=== PATIENT | male | born 1930 | race Caucasian/White ===

== ENCOUNTER 2017-05-11 08:58 | Emergency (ER) | payer MEDICARE, BC ==
[2017-05-11 11:20] LABS: ALT (SGPT) 17 U/L (8-55); AST (SGOT) 20 U/L (5-34); Alkaline Phosphatase 55 U/L (40-150); Anion Gap 13 mmol/L (10-20); BUN (Urea Nitrogen) 16 mg/dL (8.4-25.7); Bilirubin, Total 0.8 mg/dL (0.2-1.2); CK (CPK) 67 U/L (30-200); Calc. Creatinine Clearance 0 mL/min (70-130); Calcium 9.8 mg/dL (7.8-10.44); Carbon Dioxide 25 mmol/L (23-31); Chloride 102 mmol/L (98-107); Estimated GFR-MDRD 74; Globulin 3.5 g/dL (2.4-3.5); Lipase 14 U/L (8-78); Protein, Total 7.9 g/dL (5.8-8.1)
[2017-05-11 11:21] LABS: Hematocrit 49.3 % (42.0-52.0); Red Blood Cell (RBC) Count 4.78 mill/uL (4.70-6.10); White Blood Cell (WBC) Count 18.1 thou/uL (4.8-10.8)
[2017-05-11 11:24] LABS: Troponin I Less than 0.010 ng/mL (< 0.028)
[2017-05-11 11:41] LABS: Band 8 % (5-11); Mean Platelet Volume 6.6 fL (7.4-10.4); Neutrophil 86 % (42-75)
--- NOTE | 2017-05-11 12:09 | RAD ---
2 VIEWS CHEST: Date: 05/11/17 PROVIDED CLINICAL HISTORY: Chest injury. FINDINGS: Cardiac and mediastinal silhouette is within normal limits. No focal consolidation, pleural fluid, or pneumothorax apparent. The bony thorax appears grossly intact. IMPRESSION: No evidence for an acute cardiopulmonary process. POS: [facility]
--- NOTE | 2017-05-11 15:59 | CT ---
CT OF BRAIN PERFORMED WITHOUT CONTRAST ENHANCEMENT: Date: 05/11/17 HISTORY: Fall with head injury. FINDINGS: There is generalized ventricular and sulcal prominence. There are no signs of intracerebral hemorrhag e or extra-axial fluid collections. The mastoid air cells and visualized sinuses are clear. IMPRESSION: No acute intracranial abnormalities. POS: [facility]
== END 2017-05-11 14:28 | disposition home or self-care (01) ==
LOC: ERS 08:58
DX: K52.9 Noninfective gastroenteritis and colitis, unspecified (principal); R55 Syncope and collapse
CPT/HCPCS: 70450; 71020; 80053; 82553; 83690; 84484; 85025; 93005; 96360

== ENCOUNTER 2017-09-02 08:16 | Outpatient (CLI) | payer MEDICARE, BC | END 2017-09-02 08:17 | disposition home or self-care (01) | LOC: BICMAMMO 08:16 | PROVIDERS: ATTEND Internal Medicine Rheumatology | DX: M81.0 Age-related osteoporosis without current pathological fracture (principal) | CPT/HCPCS: 77080 ==

== ENCOUNTER 2017-09-09 12:05 | Outpatient (CLI) | payer MEDICARE, BC | END 2017-09-09 12:06 | disposition home or self-care (01) | LOC: BICRAD 12:05 | PROVIDERS: ATTEND Internal Medicine Rheumatology | DX: M53.84 Other specified dorsopathies, thoracic region (principal); M47.894 Other spondylosis, thoracic region | CPT/HCPCS: 72070 ==

== ENCOUNTER 2019-08-25 08:34 | Outpatient (CLI) | payer MEDICARE, BC ==
--- NOTE | 2019-08-25 09:12 | BD ---
EXAM: Bone densitometry using DEXA HISTORY: 89 yo male. Screening for osteoporosis FINDINGS: L1--bone mineral density 1.003 g/sq cm; T score -0.6 L2--bone mineral density 1.077 g/sq cm; T score -0.2 L3--bone mineral density 1.144 g/sq cm; T score 0.4 L4--bone mineral density 1.018 g/sq cm; T score -0.7 Total L1-L4--bone mineral density 1.057 g/sq cm; T score -0.3 Left femoral neck--bone mineral density0.769; T score -1.2 Total proximal left femur--bone mineral density 0.911; T score -0.8 The 10 year fracture risk for a major osteoporotic fracture is 4.4% and for a hip fracture is 1.8%. IMPRESSION: Osteopenia
== END 2019-08-25 08:35 | disposition home or self-care (01) ==
LOC: BICMAMMO 08:34
PROVIDERS: ATTEND Internal Medicine Rheumatology
DX: M81.0 Age-related osteoporosis without current pathological fracture (principal); M85.89 Other specified disorders of bone density and structure, multiple sites
CPT/HCPCS: 77080